=== PATIENT | male | born 1970 | race American Indian/Alaskan Native ===

== ENCOUNTER 2017-08-03 18:43 | Emergency (ER) | payer OTHER ==
[2017-08-03] MEDS ORDERED: ASPIRIN PO ONE (20:30)
[2017-08-03] MEDS ORDERED: NITROSTAT SL ONE ×2 (20:30→22:04)
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
[2017-08-03] MEDS ORDERED: ULTRAM PO ONE (21:16)
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
[2017-08-03 21:35] LABS: Basophils # (Auto) 0.1 K/mm3 (0.0-0.1); Basophils % (Auto) 1.2 % (0.0-1.8); Eosinophils # (Auto) 0.1 K/mm3 (0.0-0.4); Eosinophils % (Auto) 1.7 % (0.0-4.3); Hematocrit 44.2 % (35.5-45.6); Hemoglobin 14.9 gm/dl (11.8-15.2); Lymphocytes # (Auto) 2.8 K/mm3 (1.2-5.4); Lymphocytes % (Auto) 33.8 % (13.4-35.0); Mean Corpuscular HGB Conc 34 % (32-34); Mean Corpuscular Hemoglobin 28 pg (28-32); Mean Corpuscular Volume 83 fl (84-94); Monocytes # (Auto) 0.7 K/mm3 (0.0-0.8); Platelet Count 262 K/mm3 (140-440); Red Blood Count 5.34 M/mm3 (3.65-5.03); Red Cell Distribution Width 14.8 % (13.2-15.2)
--- NOTE | 2017-08-03 21:52 | XRay Report ---
FINAL REPORT PROCEDURE: XR CHEST ROUTINE 2V TECHNIQUE: PA and lateral chest radiographs were obtained. CPT 35687 HISTORY: Chest Pain COMPARISON: No prior studies are available for comparison. FINDINGS: Heart: Normal. Mediastinum/Vessels: Normal. Lungs/Pleural space: Normal. Bony thorax: No acute osseous abnormality. Other: IMPRESSION: Negative examination.
[2017-08-03 22:04] LABS: BUN/Creatinine Ratio 12; Blood Urea Nitrogen 11 mg/dL (9-20); Calcium 9.6 mg/dL (8.4-10.2); Hemolysis Index 97
[2017-08-04 00:50] VITALS: BP 132/77
== END 2017-08-04 00:50 | disposition home or self-care (01) ==
LOC: ED 18:43
DX: R07.89 Other chest pain (principal); Z88.0 Allergy status to penicillin; V49.9XXA Car occupant (driver) (passenger) injured in unspecified traffic accident, initial encounter; Y93.89 Activity, other specified; Y99.8 Other external cause status; Y92.410 Unspecified street and highway as the place of occurrence of the external cause
CPT/HCPCS: 36415; 71046; 80048; 84484; 85025; 93005; 93010

== ENCOUNTER 2019-08-23 19:50 | Emergency (ER) | payer SELFPAY ==
[2019-08-23 20:13] VITALS: BP 138/84
--- NOTE | 2019-08-23 23:40 | XRay Report ---
CHEST 1 VIEW INDICATION: SOB, concerned he was exposed to mold COMPARISON: None FINDINGS: Support devices: None Heart: Normal Lungs/Pleura: No acute pulmonary or pleural findings. IMPRESSION: 1. No significant abnormality. Signer Name: Flaco Horne MD Signed: 08/23/2019 11:35 PM Workstation Name: [id number]
[2019-08-23] MEDS ORDERED: predniSONE 20 MG TAB PO ONE (23:47)
[2019-08-23] MEDS ORDERED: ACETAMINOPHEN 325 MG TAB PO ONE (23:47)
[2019-08-23] MEDS ORDERED: METOCLOPRAMIDE 10 MG TAB PO ONE (23:47)
[2019-08-23 23:54] LABS: Basophils # (Auto) 0.1 K/mm3 (0.0-0.1); Basophils % (Auto) 1.2 % (0.0-1.8); Eosinophils # (Auto) 0.2 K/mm3 (0.0-0.4); Eosinophils % (Auto) 2.6 % (0.0-4.3); Hematocrit 41.6 % (35.5-45.6); Hemoglobin 13.6 gm/dl (11.8-15.2); Lymphocytes # (Auto) 3.1 K/mm3 (1.2-5.4); Mean Corpuscular HGB Conc 33 % (32-34); Mean Corpuscular Volume 85 fl (84-94); Monocytes # (Auto) 0.4 K/mm3 (0.0-0.8); Monocytes % (Auto) 6.7 % (0.0-7.3); Platelet Count 257 K/mm3 (140-440); Red Blood Count 4.89 M/mm3 (3.65-5.03)
--- NOTE | 2019-08-23 23:54 | Cat Scan Report ---
CT head/brain wo con INDICATION: headache, left sided UE and LE tingling. TECHNIQUE: All CT scans at this location are performed using CT dose reduction for ALARA by means of automated e xposure control. COMPARISON: 04/27/2011 FINDINGS: Visualized paranasal and mastoid sinuses are clear. Ventricles are symmetrical and normal in size. No mass, hemorrhage or other significant abnormality. IMPRESSION: 1. Negative study. Signer Name: Flaco Horne MD Signed: 08/23/2019 11:50 PM Workstation Name: [id number]
[2019-08-24 00:15] LABS: Alanine Aminotransferase 15 units/L (7-56); Albumin 4.3 g/dL (3.9-5); BUN/Creatinine Ratio 13; Blood Urea Nitrogen 10 mg/dL (9-20); Calcium 9.5 mg/dL (8.4-10.2); Hemolysis Index 4
--- NOTE | 2019-08-24 00:23 | Emergency Department Report ---
ED General Adult HPI - General Chief complaint: Extremity Problem,Nontraumatic Stated complaint: MOLD IN HOME/HEAD PAIN/RASH IN MOUTH Time Seen by Provider: 08/23/19 22:58 Source: patient Mode of arrival: Ambulatory Limitations: No Limitations - History of Present Illness Initial comments: Patient is a 49-year-old female presents emergency room with complaints of a left-sided headache that began around 6:30 AM this morning. He states at the same time he began to feel tingling and he left arm and left leg. He states that he also noticed a rash in his lip. He states that last night he noticed swelling in his feet but that was after working all day and being on his feet. Patient states that he was recently told there was mold in his home and states that he felt some mild shortness of breath when he came home last night. He does not have any shortness of breath currently. He denies any vision changes, unilateral weakness, gait disturbance, speech disturbance, fever, nausea, vomiting, diarrhea, recent travel. He denies any past medical history. He states he has an allergy to penicillin. He is a non-smoker. Nondrinker. No drug use. Severity scale (0 -10): 6 - Related Data Previous Rx's Medication Instructions Recorded Last Taken Type Ibuprofen [Motrin] 800 mg PO Q8HR PRN #30 tablet 08/04/17 Unknown Rx Butalb/Acetaminophen/Caffeine 1 cap PO Q8HR PRN #10 cap 08/24/19 Unknown Rx [Fioricet 50-300-40 mg CAP] Allergies Allergy/AdvReac Type Severity Reaction Status Date / Time Penicillins Allergy Swelling Verified 08/03/17 18:56 ED Review of Systems ROS: Stated complaint: MOLD IN HOME/HEAD PAIN/RASH IN MOUTH Other details as noted in HPI Comment: All other systems reviewed and negative ED Past Medical Hx - Past Medical History Previous Medical History?: No - Surgical History Past Surgical History?: Yes Additional Surgical History: hernia repair - Social History Smoking Status: Never Smoker Substance Use Type: None - Medications Home Medications: Home Medications Medication Instructions Recorded Confirmed Last Taken Type Ibuprofen [Motrin] 800 mg PO Q8HR PRN #30 tablet 08/04/17 Unknown Rx Butalb/Acetaminophen/Caffeine 1 cap PO Q8HR PRN #10 cap 08/24/19 Unknown Rx [Fioricet 50-300-40 mg CAP] ED Physical Exam - General Limitations: No Limitations General appearance: alert, in no apparent distress - Head Head exam: Present: atraumatic, normocephalic - Eye Eye exam: Present: normal appearance, PERRL, EOMI. Absent: scleral icterus, conjunctival injection, nystagmus, periorbital swelling, periorbital tenderness Pupils: Present: normal accommodation - ENT ENT exam: Present: normal orophraynx, mucous membranes moist, TM's normal bilaterally, normal external ear exam, other (small very superficial oral ulceration present to the inside of the lower lip, no plaques, no drainage, no petichiae) - Respiratory Respiratory exam: Present: normal lung sounds bilaterally. Absent: respiratory distress, wheezes, rales, rhonchi, stridor, chest wall tenderness, accessory muscle use, decreased breath sounds, prolonged expiratory - Cardiovascular Cardiovascular Exam: Present: regular rate, normal rhythm, normal heart sounds. Absent: systolic murmur, diastolic murmur, rubs, gallop - Neurological Exam Neurological exam: Present: alert, oriented X3, CN II-XII intact, normal gait, other (normal finger to nose, normal heel to ulloa, 5/5 strength in the BUE/BLE, sensation intact throughout, no focal neuro deficits). Absent: motor sensory deficit - Psychiatric Psychiatric exam: Present: normal affect, normal mood - Skin Skin exam: Present: warm, dry, intact ED Course Vital Signs 08/23/19 08/23/19 20:10 23:53 Temperature 98 F Pulse Rate 73 Respiratory 20 18 Rate Blood Pressure 138/84 [Right] O2 Sat by Pulse 97 Oximetry ED Medical Decision Making - Lab Data Result diagrams: 08/23/19 23:29 08/23/19 23:29 Lab Results 08/23/19 08/23/19 Range/Units 23:29 23:29 WBC 6.7 (4.5-11.0) K/mm3 RBC 4.89 (3.65-5.03) M/mm3 Hgb 13.6 (11.8-15.2) gm/dl Hct 41.6 (35.5-45.6) % MCV 85 (84-94) fl MCH 28 (28-32) pg MCHC 33 (32-34) % RDW 14.0 (13.2-15.2) % Plt Count 257 (140-440) K/mm3 Lymph % (Auto) 47.0 H (13.4-35.0) % Baca % (Auto) 6.7 (0.0-7.3) % Eos % (Auto) 2.6 (0.0-4.3) % Baso % (Auto) 1.2 (0.0-1.8) % Lymph # 3.1 (1.2-5.4) K/mm3 Baca # 0.4 (0.0-0.8) K/mm3 Eos # 0.2 (0.0-0.4) K/mm3 Baso # 0.1 (0.0-0.1) K/mm3 Seg Neutrophils % 42.5 (40.0-70.0) % Seg Neutrophils # 2.8 (1.8-7.7) K/mm3 Sodium 139 (137-145) mmol/L Potassium 4.0 (3.6-5.0) mmol/L Chloride 103.0 (98-107) mmol/L Carbon Dioxide 24 (22-30) mmol/L Anion Gap 16 mmol/L BUN 10 (9-20) mg/dL Creatinine 0.8 (0.8-1.5) mg/dL Estimated GFR > 60 ml/min BUN/Creatinine Ratio 13 % Glucose 92 (75-100) mg/dL Calcium 9.5 (8.4-10.2) mg/dL Total Bilirubin 0.30 (0.1-1.2) mg/dL AST 16 (5-40) units/L ALT 15 (7-56) units/L Alkaline Phosphatase 91 (35-129) units/L Total Protein 6.6 (6.3-8.2) g/dL Albumin 4.3 (3.9-5) g/dL Albumin/Globulin Ratio 1.9 % - Radiology Data Radiology results: report reviewed CT head/brain wo con INDICATION: headache, left sided UE and LE tingling. TECHNIQUE: All CT scans at this location are performed using CT dose reduction for ALARA by means of automated exposure control. COMPARISON: 04/27/2011 FINDINGS: Visualized paranasal and mastoid sinuses are clear. Ventricles are symmetrical and normal in size. No mass, hemorrhage or other significant abnormality. IMPRESSION: 1. Negative study. Signer Name: Flaco Horne MD Signed: 08/23/2019 11:50 PM Workstation Name: [id number] Transcribed By: TM Dictated By: Flaco Horne MD Electronically Authenticated By: Flaco Horne MD Signed Date/Time: 08/23/192349 DD/ 47 TD/TT: CHEST 1 VIEW INDICATION: SOB, concerned he was exposed to mold COMPARISON: None FINDINGS: Support devices: None Heart: Normal Lungs/Pleura: No acute pulmonary or pleural findings. IMPRESSION: 1. No significant abnormality. Signer Name: Flaco Horne MD Signed: 08/23/2019 11:35 PM Workstation Name: [id number] Transcribed By: TM Dictated By: Flaco Horne MD Electronically Authenticated By: Flaco Horne MD Signed Date/Time: 08/23/192334 DD/ 34 TD/TT: - Medical Decision Making Patient is a 49-year-old female presents emergency room with complaints of a left-sided headache that began around 6:30 AM this morning. He states at the same time he began to feel tingling and he left arm and left leg. He states that he also noticed a rash in his lip. He states that last night he noticed swelling in his feet but that was after working all day and being on his feet. Patient states that he was recently told there was mold in his home and states that he felt some mild shortness of breath when he came home last night. He does not have any shortness of breath currently. He denies any vision changes, unilateral weakness, gait disturbance, speech disturbance, fever, nausea, vomiting, diarrhea, recent travel. He denies any past medical history. He states he has an allergy to penicillin. He is a non-smoker. Nondrinker. No drug use. Vitals are normal. on exam: small very superficial oral ulceration present to the inside of the lower lip, no plaques, no drainage, no petichiae, no neuro deficits. NIH scale is 0. Labs are stable. CT head with no acute process. Chest x-ray with no acute process. Patient given Tylenol, Reglan, prednisone and headache completely resolved. Patient given prescription for Fioricet. advised pt to Please take medication as prescribed as needed. May do warm salt water gargles and use Orajel [id number]. Please follow-up with a primary care doctor. you can discuss with your primary care doctor about mold testing. Please follow-up with a neurologist. Return to the emergency room for any new or worsening symptoms. Critical care attestation.: If time is entered above; I have spent that time in minutes in the direct care of this critically ill patient, excluding procedure time. ED Disposition Clinical Impression: Numbness and tingling of left arm and leg, Mild shortness of breath, Oral ulcer Headache Qualifiers: Headache type: unspecified Headache chronicity pattern: acute headache Intractability: not intractable Qualified Code(s): R51 - Headache Disposition: DC-01 TO HOME OR SELFCARE Is pt being admited?: No Does the pt Need Aspirin: No Condition: Stable Instructions: Canker Sores (ED), Acute Headache (ED), Paresthesia (ED), Dyspnea (ED) Additional Instructions: Please take medication as prescribed as needed. May do warm salt water gargles and use Orajel [id number]. Please follow-up with a primary care doctor. you can discuss with your primary care doctor about mold testing. Please follow- up with a neurologist. Return to the emergency room for any new or worsening symptoms. Prescriptions: Butalb/Acetaminophen/Caffeine [Fioricet 50-300-40 mg CAP] 1 cap PO Q8HR PRN #10 cap PRN Reason: Headache Referrals: ARISTIDES CABAN MD [Staff Physician] - 2-3 Days [facility] [Outside] - 2-3 Days LUCIAN WIGGINS MD [Referring] - 2-3 Days IRMA SEGAL MD [Staff Physician] - 2-3 Days [facility] [Outside] - 2-3 Days Time of Disposition: 00:24 Print Language: TELUGU
== END 2019-08-24 00:30 | disposition home or self-care (01) ==
LOC: ED 19:50
DX: R51 Headache (principal); R06.02 Shortness of breath; R20.0 Anesthesia of skin; R20.2 Paresthesia of skin; K12.1 Other forms of stomatitis; Z98.890 Other specified postprocedural states; Z79.899 Other long term (current) drug therapy; Z88.0 Allergy status to penicillin
CPT/HCPCS: 36415; 70450; 71046; 80053; 85025; 99284; J7512